=== PATIENT | female | born 1940 | race Caucasian/White ===

== ENCOUNTER 2024-07-02 10:36 | Emergency (ER) | payer MEDICARE, MEDICAID, SELFPAY ==
[2024-07-02 10:39] VITALS: O2SAT 96
--- NOTE | 2024-07-02 10:39 | XR_ITS ---
Examination: CT brain head without contrast. 2-D sagittal coronal reconstructions Date and time of exam:July 02, 2024 1043 hours INDICATIONS: Stroke alert, onset focal neurologic deficit CTDI: vol (mGy):50.3 DLP: (mGycm):986 Technique: Multiple CT axial sections of the brain have been obtained, 5 mm slice thickness. Contrast has not been administered. 2-D sagittal, coronal reconstructions have been obtained Low dose protocols were performed. One or more of the following dose reduction techniques were used; automated exposure control, adjustment of the mA and/or KV according to patient size, use of iterative reconstruction technique. Findings: Mild ventricular enlargement. Intra-axial or extra-axial hemorrhage density is not seen. No mass effect or midline shift Basal cisterns are not remarkable. Fourth ventricle is midline. Cranial vault intact. Impression: Negative for acute hemorrhage, mass effect or midline shift
--- NOTE | 2024-07-02 10:39 | EKG_ITS ---
[facility] Test Date: 2024-07-02 Pat Name: GAURAV ISRAEL Department: Room: - Gender: Female Translator Interpreter: : 1940 Requested By: Ismael Sutton Order Number: [id number] Reading MD: Ismael Sutton Measurements Intervals [place] Rate: 70 P: [place]: QRS: -8 QRSD: 78 T: -1 QT: 386 QTc: 417 Interpretive Statements ATRIAL FIBRILLATION MODERATE VOLTAGE CRITERIA FOR LVH, CONSIDER NORMAL VARIANT [MEETS CRITERIA IN ONE OF: R(aVL), S(V1), R(V5), R(V5/V6)+S(V1)] POSSIBLE ANTERIOR MYOCARDIAL INFARCTION , OF INDETERMINATE AGE [30 ms Q WAVE IN V3/V4, OR R < 0.2 mV IN V4] PROBABLE INFERIOR MYOCARDIAL INFARCTION , PROBABLY OLD [35 ms Q WAVE IN II/aVF] Compared to ECG 03/15/2023 20:51:01 Myocardial infarct finding now present Sinus rhythm no longer present First degree AV block no longer present T-wave abnormality no longer present /store/S0/[id number].pdf
--- NOTE | 2024-07-02 10:39 | XR_ITS ---
Examination: CTA carotids with intravenous contrast CTA brain, head with intravenous contrast. 2-D sagittal, coronal reconstructions. 3-D reconstructions. Exam date and time: July 02, 2024 1047 hours INDICATIONS: Stroke alert, onset right-sided body weakness facial droop beginning this morning CTDI: vol (mGy) 28.6 DLP: (mGycm) 413 Technique: Multiple CTA axial brain, head carotid images post intravenous contrast injection 75 cc, Isovue-370. 2-D sagittal, coronal reconstructions. 3-D reconstructions, 3-D post processing including vascular maximum intensity projection images. Low dose protocols were performed. One or more of the following dose reduction techniques were used; automated exposure control, adjustment of the mA and/or KV according to patient size, use of iterative reconstruction technique. 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
--- NOTE | 2024-07-02 11:03 | PD.EDNEURO ---
Neuro Symptoms Deficit-RME/HPI General Chief Complaint: Altered Mental Status Stated Complaint: STROKE Time Seen by Provider: 07/02/24 10:46 Arrival date/time: 07/02/24 10:36 RME / HPI RME / HPI Narrative: 84 year old female with history of Parkinson's disease, heart disease, CAD, COPD, depression, bipolar disorder, osteoporosis, wheelchair-bound presents to the ED BIBA from [facility] care for stroke evaluation. Per medics, [place] staff reported patient was woken up ~ 30 min BINDER STRIPPER HAND and noted to have right sided facial droop and right upper/lower extremity weakness. Was last known normal 12 hours BINDER STRIPPER HAND, ~ 10pm last night 07/01 before going to bed. Prehospital BS 152, B/P 185/86, HR 80, SPO2 99% on 2L. Related Data Home Medications ?Medication ?Instructions ?Recorded ?Confirmed folic acid 1 mg tablet 1 mg PO QDAY SUPPLEMENT #0 tabs 08/07/14 03/15/23 lamotrigine 200 mg tablet 200 mg PO BID Bipolar Disorder #0 08/07/14 03/15/23 (Lamictal) tabs levothyroxine 50 mcg tablet 50 mcg PO QDAY Thyroid #0 tabs 08/07/14 03/15/23 (Synthroid) biotin 10,000 mcg capsule 10,000 mcg PO QDAY 02/28/19 03/15/23 calcium 200 mg (as 200 mg PO QDAY 02/28/19 03/15/23 citrate)-vitamin D3 6.25 mcg (250 unit) tablet (Citracal-D3 Petites) ascorbic acid (vitamin C) 500 mg 500 mg PO QDAY 12/11/20 03/15/23 tablet (Vitamin C) cetirizine 10 mg capsule 10 mg PO QDAY 12/11/20 03/15/23 diclofenac sodium 1 % topical gel 1 ea topical DAILY 12/11/20 03/15/23 ferrous sulfate 325 mg (65 mg 325 mg PO DAILY 12/11/20 03/15/23 iron) capsule,extended release pramipexole 0.25 mg tablet 0.25 mg PO BID 12/11/20 03/15/23 tramadol 50 mg tablet 50 mg PO Q12HR PRN Moderate Pain 12/11/20 03/15/23 (Scale Score 5-6) vitamin B complex 1 cap PO QDAY 12/11/20 03/15/23 esomeprazole magnesium 20 mg 20 mg PO QDAY 05/30/21 03/15/23 tablet,delayed release furosemide 20 mg tablet 20 mg PO QDAY 05/30/21 03/15/23 acetaminophen 325 mg tablet (Pain 650 mg PO Q6H PRN Fever Or Pain 04/14/22 03/15/23 Reliever (acetaminophen)) bisacodyl 10 mg rectal suppository 10 mg OK QDAY PRN Constipation 04/14/22 03/15/23 (Dulcolax (bisacodyl)) cranberry fruit 450 mg tablet 450 mg PO QDAY 04/14/22 03/15/23 (cranberry) magnesium hydroxide 400 mg/5 mL 30 ml PO QDAY PRN Constipation 04/14/22 03/15/23 oral suspension (Milk of Magnesia) multivitamin 1 tab PO QAM 04/14/22 03/15/23 oxybutynin chloride 10 mg 10 mg PO HS 04/14/22 03/15/23 tablet,extended release 24 hr sodium phosphates 19 gram-7 118 ml OK QDAY PRN Constipation 04/14/22 03/15/23 gram/118 mL enema (Fleet Enema) apixaban 2.5 mg tablet (Eliquis) 5 mg PO BID 03/05/23 03/15/23 atorvastatin 40 mg tablet 40 mg PO HS 03/05/23 03/15/23 carbidopa 25 mg-levodopa 100 mg 25 - 100 tab PO TID 03/05/23 03/15/23 tablet escitalopram oxalate 20 mg tablet 20 mg PO QDAY 03/15/23 03/15/23 (Lexapro) gabapentin 100 mg tablet 100 mg PO TID 03/15/23 03/15/23 isosorbide mononitrate 30 mg 30 mg PO QAM 03/15/23 03/15/23 tablet,extended release 24 hr nitroglycerin 0.4 mg sublingual 0.4 mg buccal [id number] PRN Chest 03/15/23 03/15/23 tablet Pain polyethylene glycol 3350 17 gram 17 g PO QDAY 03/15/23 03/15/23 oral powder packet (Miralax) sennosides 8.6 mg-docusate sodium 1 tab-cap PO HS 03/15/23 03/15/23 50 mg tablet (Senna-S) Previous Rx's ?Medication ?Instructions ?Recorded ciprofloxacin HCl 500 mg tablet 500 mg PO BID #14 tabs 03/23/23 (Cipro) Allergies Allergy/AdvReac Type Severity Reaction Status Date / Time divalproex sodium Allergy Severe RASH Verified 05/31/21 16:39 metronidazole Allergy Severe RASH Verified 05/31/21 16:39 nabumetone Allergy Severe Rash Verified 05/31/21 16:39 nitrofurantoin Allergy Severe Rash Verified 05/31/21 16:39 pentoxifylline Allergy Severe RASH Verified 05/31/21 16:39 Sulfa (Sulfonamide Allergy Severe Rash Verified 05/31/21 16:39 Antibiotics) etodolac Allergy Intermediate FLOATING Verified 05/31/21 16:39 Influenza Virus Vaccines Allergy Intermediate NAUSEA/VOMITTING, Verified 05/31/21 16:39 RASH codeine Allergy Mild MAKE ME Verified 05/31/21 16:39 FEEL WIERD Review of Systems Review of Systems ROS Unobtainable: unobtainable due to mental status Past Medical History Past Medical History NEUROLOGIC: Positive Neurological Disorders, Parkinson's Disease, Migraine and Head Trauma CARDIAC: Positive Cardiac Disorders, Heart Murmur and Hypertension GASTROINTESTINAL: Positive Gastrointestinal Disorders, Gall Bladder Disease, Gastroesophageal Reflux Disease and Obesity REPRODUCTIVE: Positive Breast Cancer and Previous Pregnancies MUSCULOSKELETAL: Positive Musculoskeletal Disorders, Arthritis and Fractures ENT: Positive Cataracts and Head Trauma ENDOCRINE: Positive Endocrine Disorders and Hypothyroidism HEMATOLOGIC: Positive Blood Disorders and Anemia PSYCHO/SOCIAL: Positive Depression, Anxiety and Depression OTHER HISTORY: Positive Falls, Measles, Cancer and Breast Cancer Family History FAMILY HISTORY: Positive Family Cardiac Disorders, Family Cancer and Family Surgery Surgical History SURGICAL: Positive Thyroidectomy, Joint Replacement, Lumpectomy, Hysterectomy and Tubal Ligation Social History SMOKING STATUS: Smoker, status unknown SUBSTANCE USE: does not use ED Exam Narrative Physical exam: GENERAL APPEARANCE: No obvious distress, nontoxic appearing HEENT: NC, AT. MMM. EOMI, clear conjunctiva, oropharynx clear. NECK: Supple without lymphadenopathy. No stiffness or restricted ROM. HEART: Normal rate and regular rhythm, normal S1/S1, no m/r/g LUNGS: CTAB, moving air well. No crackles or wheezes are heard. ABDOMEN: Soft, nontender, nondistended with good bowel sounds heard. BACK: No midline C/T/L spine pain or deformity, no obvious deformity. EXTREMITIES: Without cyanosis, clubbing or edema. NEUROLOGICAL: Weakness to the right upper and lower extremity however during examination, patient began resisting with the right leg. Right sided facial droop. Skin: Warm and dry without any rash. Course Quality Measures Suspected type of Stroke: Acute Ischemic (CTA with left ICA occlusion) Last known well (date): 07/01/24 Last known well (time): 22:00 Tenecteplase given: Reason(s) TPA not given: Outside the time window not given stroke Orders Category Date Time Status Bedside Blood Glucose NOW Care 07/02/24 10:39 Completed Lead Java Software Engineer NOW Care 07/02/24 10:39 Completed Continuous Pulse Oximetry NOW Care 07/02/24 10:39 Completed EKG (ED ONLY) *Do not use* NOW Care 07/02/24 10:39 Completed In and Out Catheter NEEDED Care 07/02/24 10:39 Completed Insert IV NOW Care 07/02/24 10:39 Completed NIH Stroke Scale now Care 07/02/24 10:39 Completed NPO NOW Care 07/02/24 10:39 Completed Neuro Check Q15MIN Care 07/02/24 10:39 Completed Nurse Swallow Screen x1 Care 07/02/24 10:39 Completed Consult to Neurology / Tele-Neurology Routine Cons 07/02/24 10:39 Active Referral - Manager Monitoring Stat Cons 07/02/24 11:[address] angio stroke protocol Stat Exams 07/02/24 10:[address] stroke protocol Stat Exams 07/02/24 10:39 Completed EKG (ED Only) Stat Exams 07/02/24 10:39 Draft CBC Stat Lab 07/02/24 11:10 Completed Comprehensive Metabolic Panel Stat Lab 07/02/24 11:10 Completed Magnesium Stat Lab 07/02/24 11:10 Completed Partial Thromboplastin Time Stat Lab 07/02/24 11:10 Completed Prothrombin Time with INR Stat Lab 07/02/24 11:10 Completed Troponin I Stat Lab 07/02/24 11:10 Completed Ondansetron Inj [Zofran Inj] Med 07/02/24 10:39 Discontinued 4 mg IV Q4HR PRN Oxygen Delivery NOW RT 07/02/24 10:39 Completed Vital Signs Vital signs: Vital Signs Pulse Oximetry (%) 96 07/02/24 10:39 Oxygen Flow Rate 2 07/02/24 10:39 Pulse ox is 95% on 2L nasal cannula which is adequate. Neuro Symptoms / Deficit MDM Narrative MDM Narrative:: IOrin am scribing for and in the presence of Dr. Sutton. Patient data External records reviewed:: [facility] previous records (I reviewed oncology note on 12/23/2023), EMS form and Assisted records (I reviewed txfer ppw from [facility] ) Clinical information provided by:: EMS Social determinants that could affect healthcare access:: housing ([place] [facility] resident ) Patient has the following chronic illnesses:: Parkinson's disease, heart disease, CAD, COPD, depression, bipolar disorder, osteoporosis, wheelchair-bound How is presenting disease/condition affected by chronic disease/condition?: exacerbated by Evaluation data The following diagnostics were reviewed and interpreted by me:: lab results, radiology exam(s) (My interpretation of head CT shows no acute hemorrhage or cerebral findings. ) and EKG tracing(s) (Sinus rhythm, rate 70, no STEMI. ) Lab and/or radiology exams considered but not ordered:: None Interpretation Summary: Ordering Physician: Ismael Sutton MD Date of Service: 07/02/24 Procedure(s): CT stroke protocol Accession Number(s): [id number] cc: Ismael Sutton MD; Cleve Martinez MD~ Examination: CT brain head without contrast. 2-D sagittal coronal reconstructions Date and time of exam:July 02, 2024 1043 hours INDICATIONS: Stroke alert, onset focal neurologic deficit CTDI: vol (mGy):50.3 DLP: (mGycm):986 Technique: Multiple CT axial sections of the brain have been obtained, 5 mm slice thickness. Contrast has not been administered. 2-D sagittal, coronal reconstructions have been obtained Low dose protocols were performed. One or more of the following dose reduction techniques were used; automated exposure control, adjustment of the mA and/or KV according to patient size, use of iterative reconstruction technique. Findings: Mild ventricular enlargement. Intra-axial or extra-axial hemorrhage density is not seen. No mass effect or midline shift Basal cisterns are not remarkable. Fourth ventricle is midline. Cranial vault intact. Impression: Negative for acute hemorrhage, mass effect or midline shift Dictated By:Cleve Martinez MD Signed By:<Electronically signed by Cleve Martinez MD in [place]>07/02/24 1047 Ordering Physician: Ismael Sutton MD Date of Service: 07/02/24 Procedure(s): CT angio stroke protocol Accession Number(s): [id number] cc: Ismael Sutton MD; Cleve Martinez MD~ Examination: CTA carotids with intravenous contrast CTA brain, head with intravenous contrast. 2-D sagittal, coronal reconstructions. 3-D reconstructions. Exam date and time: July 02, 2024 1047 hours INDICATIONS: Stroke alert, onset right-sided body weakness facial droop beginning this morning CTDI: vol (mGy) 28.6 DLP: (mGycm) 413 Technique: Multiple CTA axial brain, head carotid images post intravenous contrast injection 75 cc, Isovue-370. 2-D sagittal, coronal reconstructions. 3-D reconstructions, 3-D post processing including vascular maximum intensity projection images. Low dose protocols were performed. One or more of the following dose reduction techniques were used; automated exposure control, adjustment of the mA and/or KV according to patient size, use of iterative reconstruction technique. 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 Dictated By:Cleve Martinez MD Signed By:<Electronically signed by Cleve Martinez MD in OV>07/02/24 1148 Medications / Prescriptions Medications or Prescriptions considered but not ordered:: None Medication administrations:: Medication Administration History Discontinued Medications Ondansetron HCl (Ondansetron Inj 2 Mg/Ml Inj 2 Ml) 4 mg IV Q4HR PRN PRN Reason: NAUSEA OR VOMITING Stop: 08/01/24 10:38 See above Consultations Consultation(s) initiated? (list below): Yes Consultation #1 (Physician, Specialty, Details): I spoke with teleneurologist Dr. Arrieta. We discussed today's findings, recommends transferring for IR Neuro. Time: 11:50 Consultation #2 (Physician, Specialty, Details): I spoke with transfer nurse and IR neurologist Dr. Wasserman at [facility]. Discussed patients PMHx, HPI, ED course, exam findings, labs, and radiology results. Patient has been accepted for transfer. Time: 12:17 Diagnosis Neuro Differential Diagnosis: subarachnoid hemorrhage, cerebrovascular accident and transient cerebral ischemia Most likely diagnosis given after review of the tests above:: CVA Left ICA occlusion Admission Indicated Admission indicated?: not indicated Explain why admission is indicated or not indicated:: Txfer for IR Neuro Admission Request Was there a request for admission?: No Disposition Plan Disposition Plan: Transfer Critical Care Time Critical Care Time Critical Care Time: Yes Total Critical Care Time (min.): 35 Attestation: The high probability of sudden, clinically significant deterioration in the patient's condition required the highest level of my preparedness to intervene urgently. The services I provided to this patient were to treat and/or prevent clinically significant deterioration. Services included the following: chart data review, reviewing nursing notes and/or old charts, documentation time, middleware consultant collaboration regarding findings and treatment options, medication orders and management, direct patient care, vital sign assessments and ordering, interpreting and reviewing diagnostic studies and lab tests. Aggregate critical care time includes only time during which I was engaged in work directly related to the patient's care, as described above, whether at bedside or elsewhere in the Emergency Department. It did not include time spent performing other reported procedures or the services of residents, students, nurses or physician assistants. Discharge Plan Plan Patient Disposition: [facility] Pt Being Transferred to: [facility] Service Needed for Transfer: Neurology Patient condition on transfer: Stable Prescriptions/Referrals Prescriptions/Med Rec: No Action lamotrigine [Lamictal] 200 MG tablet 200 mg PO BID Qty: 0 levothyroxine [Synthroid] 50 mcg Tablet 50 mcg PO QDAY Qty: 0 folic acid 1 MG tablet 1 mg PO QDAY Qty: 0 furosemide 20 mg Tablet 20 mg PO QDAY esomeprazole magnesium 20 mg Tablet,Delayed Release (Dr/Ec) 20 mg PO QDAY biotin 10,000 mcg Capsule 10,000 mcg PO QDAY calcium citrate-vitamin D3 [Citracal-D3 Petites] 200 mg calcium -250 unit Tablet 200 mg PO QDAY ascorbic acid (vitamin C) [Vitamin C] 500 mg Tablet 500 mg PO QDAY pramipexole 0.25 mg Tablet 0.25 mg PO BID vitamin B complex Capsule 1 cap PO QDAY ferrous sulfate 325 mg (65 mg iron) Capsule, Extended Release 325 mg PO DAILY tramadol 50 mg Tablet 50 mg PO Q12HR PRN (Reason: Moderate Pain (Scale Score 5-6)) diclofenac sodium 1 % Gel 1 ea TOPICAL DAILY Rx Instructions: to right lower leg cetirizine 10 mg Capsule 10 mg PO QDAY multivitamin Tablet 1 tab PO QAM oxybutynin chloride 10 mg Tablet Extended Release 24hr 10 mg PO HS magnesium hydroxide [Milk of Magnesia] 400 mg/5 mL Suspension 30 ml PO QDAY PRN (Reason: Constipation) bisacodyl [Dulcolax (bisacodyl)] 10 mg Suppository 10 mg OK QDAY PRN (Reason: Constipation) Fleet Enema 19-7 gram/118 mL Enema 118 ml OK QDAY PRN (Reason: Constipation) cranberry 450 mg Tablet 450 mg PO QDAY Rx Instructions: administer with a meal acetaminophen [Pain Reliever (acetaminophen)] 325 mg tablet 650 mg PO Q6H PRN (Reason: Fever Or Pain) Eliquis 2.5 mg tablet 5 mg PO BID atorvastatin 40 mg tablet 40 mg PO HS carbidopa-levodopa 25-100 mg tablet 25 - 100 tab PO TID polyethylene glycol 3350 [Miralax] 17 gram Powder In Packet 17 g PO QDAY isosorbide mononitrate 30 mg Tablet Extended Release 24 Hr 30 mg PO QAM sennosides-docusate sodium [Senna-S] 8.6-50 mg Tablet 1 tab-cap PO HS nitroglycerin 0.4 mg Tablet, Sublingual 0.4 mg BUCCAL [id number] PRN (Reason: Chest Pain) escitalopram oxalate [Lexapro] 20 mg Tablet 20 mg PO QDAY gabapentin 100 mg Tablet 100 mg PO TID ciprofloxacin HCl [Cipro] 500 mg tablet 500 mg PO BID Qty: 14 0RF Problem List Clinical Impression: CVA (cerebrovascular accident), ICAO (internal carotid artery occlusion) Patient/Caregiver Discharge Instructions Print Language: Telugu Stand Alone Forms: Kimmie Award Info., Patient Portal Info Letter
[2024-07-02 11:11] VITALS: BP 170/80; PULSE 69; RESP 16; TEMP 36.6; O2SAT 95
[2024-07-02 11:12] VITALS: PULSE 80; O2SAT 99; BMI 35.6
--- NOTE | 2024-07-02 11:15 | PC.NURSE ---
PER EMS, FACILITY REPORTS LKW WAS 12 HRS AGO. FACILITY CALLED DUE TO RIGHT SIDED WEAKNESS AND RIGHT SIDED FACIAL DROOP. PT HAS HX OF [place]. PT HAS 18 TO RIGHT FOREARM FROM EMS
[2024-07-02 11:32] LABS: Basophils % (Auto) 1 % (0-2.5); Eosinophils # (Auto) 0.1 Thou/mm3 (0.0-0.5); Eosinophils % (Auto) 2 % (0-10); Hematocrit 41.9 % (36.0-46.0); Hemoglobin 13.6 g/dL (12.0-16.0); Immature Granulocytes % (Auto) 1 % (0-0); Immature Granulocytes Auto 0.03 Thou/mm3 (0.00-0.00); Lymphocytes % (Auto) 36 % (10-50); Mean Corpuscular HGB Conc 32.5 g/dl (31.0-37.0); Mean Corpuscular Hemoglobin 30.3 pg (25.0-35.0); Mean Corpuscular Volume 93 fL (80-100); Monocytes # (Auto) 0.3 Thou/mm3 (0.0-0.8); Monocytes % (Auto) 6 % (0-12); Neutrophils % (Auto) 55 % (37-80); Nucleated Red Blood Cell % 0 /100 WBC (0); Platelet Count 223 Thou/mm3 (140-440); RDW Standard Deviation 46.5 fL (36.4-46.3); Red Blood Count 4.49 Miln/mm3 (4.00-5.20); White Blood Count 5.4 Thou/mm3 (3.6-11.0)
[2024-07-02 11:50] LABS: Partial Thromboplastin Time 25.4 Seconds (22.0-36.0); Prothrombin Time 11.2 Seconds (9.0-12.2)
[2024-07-02 11:51] LABS: Alanine Aminotransferase 14 U/L (10-49); Albumin, Serum 3.1 gm/dL (3.4-4.8); Albumin/Globulin Ratio 1.3 (1.2-2.2); Alkaline Phosphatase 70 U/L (46-116); Anion Gap 5 (7-16); Aspartate Amino Transferase 10 U/L (0-34); BUN/Creatinine Ratio 35 Ratio (12-20); Bilirubin,Total 0.6 mg/dL (0.3-1.2); Blood Urea Nitrogen 14 mg/dL (9-23); Calcium 8.5 mg/dL (8.3-10.6); Calcium (Corrected) 9.2 mg/dL (8.5-10.1); Carbon Dioxide 33.7 mMol/L (20.0-31.0); Chloride 103 mMol/L (98-107); Creatinine (Component) 0.4 mg/dL (0.6-1.3); Estimated Creatinine Clearance 100.4 mL/min (>60); Globulin 2.4 gm/dL (2.3-3.5); Glucose 94 mg/dL (74-106); Magnesium 1.8 mg/dL (1.6-2.6); Osmolality,Calculated 283 (275-295); Potassium 3.4 mMol/L (3.4-5.1); Sodium 142 mMol/L (136-145); Total Protein 5.5 gm/dL (5.7-8.2); Troponin I < 0.020 ng/mL (0.0-0.045); eGFR > 60 See Note
--- NOTE | 2024-07-02 11:55 | PD.TNEURO ---
Tele Neuro Consultation Consultation Date 07/02/24 Most Recent Vital Signs Last Vital Signs Temp 98 F 07/02/24 11:11 Pulse 69 07/02/24 11:11 Resp 16 07/02/24 11:11 BP 170/80 H 07/02/24 11:11 Pulse Ox 95 07/02/24 11:11 O2 Del Method Nasal Cannula 07/02/24 11:11 O2 Flow Rate 2 07/02/24 11:11 Laboratory-Coagulation Panel PT 11.2 Seconds (9.0-12.2) 07/02/24 11:10 INR 1.0 (0.9-1.3) 07/02/24 11:10 APTT 25.4 Seconds (22.0-36.0) 07/02/24 11:10 Consultation Narrative [facility] Patient Name:???Anuradha Lance Date of :???1940 Identification Number:??? Date of Service:???07/02/2024 10:36:07 Diagnosis:?I63.89 - Cerebrovascular accident (CVA) due to other mechanism ([facility]) Impression: ?86 y/o female with hx of Parkinson's disease, COPD, CAD presenting with right sided weakness, and dysarthria LKN 10:00 pm last night. Patient was last seen well last night around 10:00 pm before going to sleep. When they tried to wake her up today they noticed her to have right sided deficit, and dysarthria, aphasia. NIHSS of 25. No prior hx of strokes. Head CT w/o acute intracranial abnormalities. ? ?CTA with left ICA occlusion, discussed with ED provider. ED provider will discuss with NeuroIR. ? ?Recommendations: ?1. Discuss case with neuroIR, ED to discuss transfer ?2. Stroke workup: ? -Brain MRI w/o ? -LDL, A1c, TSH ? -TTE with bubble ? ?3.. Continue Aspirin 81mg daily ?4. Plavix load [id number], followed by plavix 75mg daily ?5. IV fluids ?6. Keep the head of the bed flat ? Our recommendations are outlined below. Recommendations: ? Stroke/Telemetry Floor ? Neuro Checks ? Bedside Swallow Eval ? DVT Prophylaxis ? IV Fluids, Normal Saline ? Head of Bed 30 Degrees ? Euglycemia and Avoid Hyperthermia (PRN Acetaminophen) ? Antihypertensives PRN if Blood pressure is greater than 220/120 or there is a concern for End organ damage/contraindications for permissive HTN. If blood pressure is greater than 220/120 give labetalol PO or IV or Vasotec IV with a goal of 15% reduction in BP during the first 24 hours. Sign Out: ? Discussed with Emergency Department Provider Advanced Imaging:Advanced imaging has been ordered. Results pending. Metrics: Last Known Well: 07/01/2024 22:00:16 Dispatch Time: 07/02/2024 10:36:07 Arrival Time: 07/02/2024 10:38:37 Initial Response Time: 07/02/2024 10:38:09Symptoms: right sided weakness, right facial droop, dysarthria. . Initial patient interaction: 07/02/2024 10:40:49 NIHSS Assessment Completed: 07/02/2024 10:48:08Patient is not a candidate for Thrombolytic. Thrombolytic Medical Decision: 07/02/2024 10:48:10Patient was not deemed candidate for Thrombolytic because of following reasons: LKW outside 4.5 hr window. . I personally Reviewed the CT Head and it Showed no acute intracranial abnormalities. Primary Provider Notified of Diagnostic Impression and Management Plan on: 07/02/2024 11:50:36 History of Present Illness:Patient is a 84 year old Female. Patient was brought by EMS for symptoms of right sided weakness, right facial droop, dysarthria. . 86 y/o [employer], CAD, Parkinson's disease. Patient was last seen well 12 hours prior to presentation(10:00 pm)when she went to bed. Nursing staff then noticed right sided deficits when they tried to wake her up today which prompted for them to call EMS. No prior hx of strokes. No seizure hx. ? Past Medical History: Other PMH:? COPD,Parkinson's Medications: No Anticoagulant use? Antiplatelet use:?Yes?Aspirin 81mg Reviewed EMR for current medications Allergies:? Reviewed Social History: Patient Is: Single Smoking: No Alcohol Use: No Drug Use: No Family History: There is no family history of premature cerebrovascular disease pertinent to this consultation ROS : 14 Points Review of Systems was performed and was negative except mentioned in HPI. Past Surgical History: There Is No Surgical History Contributory To Today?s Visit ? Examination: BP(180/67),?Pulse(78),?Blood Glucose(112) 1A: Level of Consciousness - Arouses to minor stimulation?+ 1 1B: Ask Month and Age - Aphasic?+ 2 1C: Blink Eyes & Squeeze Hands - Performs 0 Tasks?+ 2 2: Test Horizontal Extraocular Movements - Partial Gaze Palsy: Corrects with Oculocephalic Reflex?+ 1 3: Test Visual [place] - No Visual Loss?+ 0 4: Test Facial Palsy (Use Grimace if Obtunded) - Partial paralysis (lower face)?+ 2 5A: Test Left Arm Motor Drift - Drift, hits bed?+ 2 5B: Test Right Arm Motor Drift - No Movement?+ 4 6A: Test Left Leg Motor Drift - Some Effort Against [place]?+ 2 6B: Test Right Leg Motor Drift - Some Effort Against [place]?+ 2 7: Test Limb Ataxia (FNF/Heel-Concepcion) - No Ataxia?+ 0 8: Test Sensation - Complete Loss: Cannot Sense Being Touched At All?+ 2 9: Test Language/Aphasia - Mute/Global Aphasia: No Usable Speech/Auditory Comprehension?+ 3 10: Test Dysarthria - Mute/Anarthric?+ 2 11: Test Extinction/Inattention - No abnormality?+ 0 NIHSS Score:?25 Pre-Morbid Modified Jam Scale:Unable to assess Spoke with :?ED provider This consult was conducted in real time using interactive audio and video technology. Patient was informed of the technology being used for this visit and agreed to proceed. Patient located in hospital and provider located at home/office setting. Patient is being evaluated for possible acute neurologic impairment and high probability of imminent or life-threatening deterioration. I spent total of 61 minutes providing care to this patient, including time for face to face visit via telemedicine, review of medical records, imaging studies and discussion of findings with providers, the patient and/or family. Dr Les Gates [facility] For Inpatient follow-up with [facility] physician please call [facility] at . As we are not an outpatient service for any post hospital discharge needs please contact the hospital for assistance. If you have any questions for the [facility] physicians or need to reconsult for clinical or diagnostic changes please contact us via [facility] at . ?
--- NOTE | 2024-07-02 12:13 | PC.CM ---
Addendum entered by Donna Davis RN 07/02/24 14:57: 1400 [facility]. Addendum entered by Donna Davis RN 07/02/24 12:37: patient accepted to [facility] with Dr. Go ED to ED. Number to call and give report [phone]. Nurse is Meli. I will call and get a CD made and I will set up transport. 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 I contacted [facility] and initiated a transfer. I spoke to Emmanuel and he requested I fax over a facesheet.
== END 2024-07-02 14:02 | disposition short-term general hospital (02) ==
LOC: SERX 14:01
PROVIDERS: Emergency Provider Emergency Medicine
DX: I63.9 Cerebral infarction, unspecified (principal); I65.22 Occlusion and stenosis of left carotid artery; R29.730 NIHSS score 30; G20.A1 Parkinson's disease without dyskinesia, without mention of fluctuations; I10 Essential (primary) hypertension; J44.9 Chronic obstructive pulmonary disease, unspecified; I25.10 Atherosclerotic heart disease of native coronary artery without angina pectoris; F32.A Depression, unspecified
CPT/HCPCS: 36415; 70450; 70496; 70498; 80053; 80307; 81001; 83735; 84484; 85025; 85610; 85730; 87086; 93005; 99291; A4649; Q9967